=== PATIENT | male | born 1980 | race Caucasian/White ===

== ENCOUNTER → 2016-11-12 | Day surgery (SDC) | payer BC ==
[~2016-11-12] MED LIST: LORTAB 5-325 M1 EACH PO; NEURONTIN 400400 MG PO; PROTONIX20 MG PO; VITAMIN D50000 UNIT PO
== END | disposition home or self-care (01) ==
LOC: OR 08:22
PROVIDERS: Internal Medicine Gastroenterology
PROC: 0DB68ZX Excision of Stomach, Via Natural or Artificial Opening Endoscopic, Diagnostic (ICD-10-PCS; principal; 2016-11-12 14:00)
DX: K29.50 Unspecified chronic gastritis without bleeding (principal); B96.81 Helicobacter pylori [H. pylori] as the cause of diseases classified elsewhere; K26.7 Chronic duodenal ulcer without hemorrhage or perforation; D62 Acute posthemorrhagic anemia; F17.200 Nicotine dependence, unspecified, uncomplicated; E66.3 Overweight; Z82.49 Family history of ischemic heart disease and other diseases of the circulatory system; Z80.9 Family history of malignant neoplasm, unspecified; Z79.52 Long term (current) use of systemic steroids; Z79.891 Long term (current) use of opiate analgesic; Z79.899 Other long term (current) drug therapy
CPT/HCPCS: J2250; J3010; J7030

== ENCOUNTER 2020-12-08 16:38 | Emergency (ER) | payer OTHER ==
[~2020-12-08 16:38] MED LIST changes: +ANUSOL HC SUPP1 SUPP PR; +COLACE 100MG C100 MG PO; +Viscous Lidocaine2% TOP
[2020-12-08] MEDS ORDERED: NORFLEX 100 MG100 MG PO (20:10)
== END 2020-12-08 20:22 | disposition home or self-care (01) ==
LOC: ER1 16:38
DX: S13.4XXA Sprain of ligaments of cervical spine, initial encounter (principal); S86.911A Strain of unspecified muscle(s) and tendon(s) at lower leg level, right leg, initial encounter; S33.5XXA Sprain of ligaments of lumbar spine, initial encounter; Z88.6 Allergy status to analgesic agent; V49.40XA Driver injured in collision with unspecified motor vehicles in traffic accident, initial encounter; Y92.410 Unspecified street and highway as the place of occurrence of the external cause
CPT/HCPCS: 72070; 72100; 72125; 73562; 99284

== ENCOUNTER → 2021-01-11 | Outpatient (CLI) | payer OTHER ==
[~2021-01-11] MED LIST changes: +LODINE CAP 300300 MG PO; +NORFLEX 100 MG100 MG PO
== END ==
LOC: EMI 14:21
DX: M54.5 Low back pain (principal); M25.561 Pain in right knee; M51.27 Other intervertebral disc displacement, lumbosacral region; S83.281D Other tear of lateral meniscus, current injury, right knee, subsequent encounter
CPT/HCPCS: 72148; 73721

== ENCOUNTER 2021-03-14 19:25 | Emergency (ER) | payer OTHER ==
[~2021-03-14 19:25] MED LIST changes: -LODINE CAP 300300 MG PO
[2021-03-14] MEDS ORDERED: NORFLEX 100 MG100 MG PO (20:22)
[2021-03-14] MEDS ORDERED: LODINE CAP 300300 MG PO (20:22)
== END 2021-03-14 20:55 | disposition home or self-care (01) ==
LOC: ER1 19:25
DX: M54.41 Lumbago with sciatica, right side (principal); F17.210 Nicotine dependence, cigarettes, uncomplicated
CPT/HCPCS: 96372; 99283; J1100; J1885; J2360

== ENCOUNTER → 2021-12-28 | Outpatient (CLI) | payer OTHER ==
[~2021-12-28] MED LIST changes: +LODINE CAP 300300 MG PO
== END ==
LOC: KOH-I 12-26 10:30
DX: S83.241A Other tear of medial meniscus, current injury, right knee, initial encounter (principal); X58.XXXA Exposure to other specified factors, initial encounter
CPT/HCPCS: 73721

== ENCOUNTER 2022-02-15 10:56 | Emergency (ER) | payer OTHER, MEDICAID | END 2022-02-15 13:58 | disposition home or self-care (01) | LOC: ER1 10:56 | DX: S16.1XXA Strain of muscle, fascia and tendon at neck level, initial encounter (principal); S80.11XA Contusion of right lower leg, initial encounter; F17.200 Nicotine dependence, unspecified, uncomplicated; V49.50XA Passenger injured in collision with unspecified motor vehicles in traffic accident, initial encounter; Y92.410 Unspecified street and highway as the place of occurrence of the external cause | CPT/HCPCS: 72125; 73564; 73590; 99284; J1885 ==